=== PATIENT | male | born 1960 | race Caucasian/White ===

== ENCOUNTER 2025-10-10 18:47 | Emergency (ER) | payer MEDICARE, SELFPAY ==
--- NOTE | ~2025-10-10 | XR_ITS ---
EXAMINATION: XR foot RT min 3V DATE: 10/10/2025 19:13 INDICATION: Trauma. TECHNIQUE: 4 views were obtained. COMPARISON: None. FINDINGS: No acute fracture or dislocation. Soft tissue swelling on the dorsal aspect of the foot. IMPRESSION: 1. No acute fracture. Soft tissue swelling on the dorsal aspect of the foot. Reviewed, dictated and finalized at location T. [employer]
--- NOTE | 2025-10-10 18:49 | ED_ITS ---
HPI - Extremity Injury (Lower) General Chief Complaint: Extremity Injury, Lower Stated Complaint: R ankle and foot pain Time Seen by Provider: 10/10/25 18:49 Source: patient Mode of arrival: ambulatory Limitations: no limitations History of Present Illness HPI Narrative: Hipolito is a 65 year old female patient presenting to the clinic today with c/o right foot pain. He reports he twisted his ankle/foot around noon today when transitioning from a hardwood floor to a linoleum floor. Reports he twisted his ankle/foot is having pain to the dorsal lateral foot. States pain is worse with bearing weight and dorsal flexing. Rates his pain 4/10 Has not taken any medications for pain. Is wearing a walking boot upon arrival Related Data Home Medications ?Medication ?Instructions ?Recorded ?Confirmed ?Last Taken ?Type atorvastatin 80 mg tablet mg 10/10/25 Unknown History blood-glucose sensor (FreeStyle 10/10/25 10/10/25 Unk nown History Joan 3 Plus Sensor device) empagliflozin 25 mg tablet mg 10/10/25 Unknown Histor y (Jardiance) epinephrine 0.3 mg/0.3 mL 10/10/25 Unknown History injection, auto-injector glipizide 5 mg tablet mg 10/10/25 Unknown History losartan 25 mg tablet mg 10/10/25 Unknown History metformin 500 mg tablet mg 10/10/25 Unknown History metoprolol succinate 100 mg mg PO 10/10/25 Unknown Hi story tablet,extended release 24 hr omeprazole 20 mg capsule,delayed mg 10/10/25 Unknown History release sucralfate 1 gram tablet 10/10/25 Unknown History Allergies Allergy/AdvReac Type Severity Reaction Status Date / Time celecoxib AdvReac Intermediate MUSCLE Verified 10/10/25 19:08 TIGHTNESS CAUSING PAIN Review of Systems Review of Systems: Pertinent positives per HPI. Patient denies any fever, chills, rash, headache, visual changes, dizziness, cough, runny nose, sore throat, shortness of breath, chest pain, palpitations, nausea, vomiting, diarrhea, constipation, abdominal pain, or any urinary issues. [facility] Comments At the time of my signature, I reviewed and agree with the nursing past medical, surgical, social, and family history. There is no relevant family history pertinent to the patient complaint. Exam Narrative: General: Well-developed, morbidly obese, in no apparent distress Head: Normocephalic, atraumatic. Cardio: Regular rate and rhythm, s1 and s2 normal, no murmur appreciated. Resp: Clear to auscultation bilaterally, no rhonchi, rales, wheezing or rubs. Musculoskeletal: No deformity, tender to palpation over the dorsal/lateral foot, pain with dorsal flexion and bearing weight, limited range of motion due to pain, muscle strength strong and equal, peripheral pulse strong, no edema, no cyanosis, normal gait and station Course Course Emergency Course: Portions of this record may have been created with voice recognition software. Level of Care: Express Care Visit Vital Signs Vital signs: Vital Signs Temperature 36.2 C L 10/10/25 19:03 Pulse Rate 70 10/10/25 19:03 Respiratory Rate 18 10/10/25 19:03 Blood Pressure 149/57 H 10/10/25 19:03 Pulse Oximetry 96 10/10/25 19:03 Oxygen Delivery Room Air 10/10/25 19:03 Temperature 36.2 C L 10/10/25 19:03 Pulse Rate 70 10/10/25 19:03 Respiratory Rate 18 10/10/25 19:03 Blood Pressure 149/57 H 10/10/25 19:03 Pulse Oximetry 96 10/10/25 19:03 Oxygen Delivery Room Air 10/10/25 19:03 Vital signs reviewed MDM - Extremity Injury (Lower) MDM Narrative Medical decision making narrative: At the time of visit patient is resting comfortably on the exam table. Patient appears to be nontoxic. C/o right foot pain. He reports he twisted his ankle/foot around noon today when transitioning from a hardwood floor to a linoleum floor. Reports he twisted his ankle/foot is having pain to the dorsal lateral foot. States pain is worse with bearing weight and dorsal flexing. Rates his pain 4/10 Has not taken any medications for pain. Is wearing a walking boot upon arrival. On exam patient has point tenderness to the palpation over the right dorsal lateral foot, pain with dorsal flexion and has limited range of motion due to pain. Pain is worse with bearing weight. X-ray of the right foot was ordered. Diagnostics: X-ray of the right foot was performed shows dorsal foot swelling without acute fracture or malalignment. Plan: I suspect the patient has a right foot sprain. Diaz wrap was given in the clinic today. Offered ice pack and patient declined. States they have ice packs at home. May wear walking boot when up ambulating. Supportive measures were discussed with the patient and they voiced understanding discharge i nstructions and agrees to treatment plan. Return precautions reviewed Differential Diagnosis Differential diagnosis: Likely ankle sprain and strain, ankle fracture and other (Foot sprain, foot fracture) Imaging Data Radiologist's impression: ITS Impressions Foot X-Ray 10/10/25 19:14 IMPRESSION: 1. No acute fracture. Soft tissue swelling on the dorsal aspect of the foot. Discharge Plan Discharge Clinical Impression: Foot sprain Qualifiers: Encounter type: initial encounter Laterality: right Qualified Code(s): S93.601A - Unspecified sprain of right foot, initial encounter Patient Disposition: Home Condition: Stable Instructions: Antibiotic Form, Foot Sprain (ED) Additional Instructions: X-rays negative for any sign of fracture or malalignment. Rest, ice, elevate, and wear diaz wrap as directed May wear walking boot with ambulation Tylenol/motrin for pain as discussed. Gradually bear weight No running or sports until healed. Follow up with your PCP if symptoms persist more than 1 week. Patient Language: Faroese Prescriptions: No Action metformin 500 mg tablet atorvastatin 80 mg tablet sucralfate 1 gram tablet metoprolol succinate 100 mg tablet extended release 24 hr PO losartan 25 mg tablet omeprazole 20 mg capsule,delayed release(DR/EC) epinephrine 0.3 mg/0.3 mL auto-injector glipizide 5 mg tablet (DME) FreeStyle Joan 3 Plus Sensor Device MISCELLANEOUS Jardiance 25 mg tablet Follow-up/Referrals: Syeda,Tk Arredondo MD [Primary Care Provider] Time of Disposition: 19:18 Quality NIHSS Nursing Documentation ED NIHSS nursing documentation: reviewed/agree
[2025-10-10 19:03] VITALS: BP 149/57; PULSE 70; RESP 18; TEMP 36.2; O2SAT 96
== END 2025-10-10 19:26 | disposition home or self-care (01) ==
PROVIDERS: Emergency Provider Nurse Practitioner Family; PCP Family Medicine
DX: S93.601A Unspecified sprain of right foot, initial encounter (principal); Z79.899 Other long term (current) drug therapy; Z79.84 Long term (current) use of oral hypoglycemic drugs; X50.0XXA Overexertion from strenuous movement or load, initial encounter
CPT/HCPCS: 73630; 99203; G0463